=== PATIENT | male | born 1955 ===

== ENCOUNTER 2018-04-23 02:34 | Emergency (ER) | payer SELFPAY ==
--- NOTE | 2018-04-23 02:50 | EDPHY ---
H & P Stated Complaint: Rib pain/SOB Time Seen by Provider: 04/23/18 02:49 HPI/ROS: 63 yo female presents complaining of right sided pleuritic chest pain that began this afternoon. He denies cough, fevers or chills. He denies any prior hospitalizations or surgeries. He states he has a prior hx of chronic norco use, has stopped the norco and uses Kratom for approx 3 months. No leg pain, no leg cramps. Review of systems As per HPI General no fever no chills no weakness HEENT no eye pain no eye discharge. No eye redness, no sore throat Respiratory no cough, positive shortness of breath Cardiac positive chest pain, no peripheral edema GI no abdominal pain, no diarrhea, no constipation, no nausea, no vomiting no flank pain, no hematuria, no dysuria Musculoskeletal no myalgias, no joint pain Heme no easy bruising, no easy bleeding Endo no polyuria, no polydipsia Skin no rashes, no pruritus Neuro no syncope, no dizziness, no headaches Psych is no suicidal ideation, no homicidal ideation Source: Patient Exam Limitations: No limitations - Personal History Current Tetanus/Diphtheria Vaccine: Yes Current Tetanus Diphtheria and Acellular Pertussis (TDAP): Yes - Medical/Surgical History Hx Asthma: No Hx Chronic Respiratory Disease: No Hx Diabetes: No Hx Cardiac Disease: No Hx Renal Disease: No Hx Cirrhosis: No Hx Alcoholism: No Hx HIV/AIDS: No Hx Splenectomy or Spleen Trauma: No Other PMH: Denies - Family History Significant Family History: No pertinent family hx - Social History Smoking Status: Former smoker Alcohol Use: Occasionally Drug Use: Marijuana, Other (kratom) - Physical Exam Exam: 63 yo M in moderate distress secondary to right lower chest wall pain at,nc eomi, anicteric neck supple, no jvd, no meningismus lungs cta bilat, no wheeze chest wall ttp right lower chest wall heart rrr abd non dist nabs soft nt ext no cce skin no rash Constitutional: Initial Vital Signs Temperature (C) 36.6 C 04/23/18 02:38 Heart Rate 95 04/23/18 02:38 Respiratory Rate 18 04/23/18 02:38 Blood Pressure 170/115 H 04/23/18 02:38 O2 Sat (%) 93 04/23/18 02:38 O2 Delivery Mode Room Air Allergies/Adverse Reactions: varenicline [From Chantix] Allergy (Verified 04/23/18 02:41) Home Medications: Medication Instructions Recorded NK [No Known Home Meds] 04/23/18 Medical Decision Making ED Course/Re-evaluation: Patient seen and evaluated for right lower chest pain of approximately 12 hr duration. IV established, labs drawn EKG normal sinus rhythm, rate 97 Chest x-ray poor inspiration , no infiltrate Troponin wnl D-dimer wnl CBC wnl CMP wnl Pt given one liter normal saline, fentanyl 50 mcg and toradol 30 mg with marked relief of his right sided chest wall pain. CT chest to rule out pe done because pt mildly tachycardic and had been on long drive >[address] chest no pe, pos nodules, emphysematous changes Imp right costochondritis Plan rest ibuprofen or acetaminophen advise follow up with pcp Differential Diagnosis: Differential diagnosis considered but not limited to: Myocardial infarction, pneumothorax, pulmonary embolus, pleural effusion, pleurisy, pneumonia, costochondritis, herpes zoster - Data Points Laboratory Results: 04/23/18 04/23/18 03:01 02:58 POC Sodium 141 mEq/L mEq/L (135-145) POC Potassium 4.5 mEq/L mEq/L (3.3-5.0) POC Chloride 100.0 mEq/L mEq/L (97-110) POC Total CO2 27 mEq/L mEq/L (22-31) POC BUN 13 mg/dL mg/dL (7-23) POC Creatinine 1.0 mg/dL mg/dL (0.7-1.3) POC Glucose 105 mg/dL H mg/dL (70-100) POC Calcium 10.3 mg/dL mg/dL (8.5-10.4) POC Total Bilirubin 0.6 mg/dL mg/dL (0.1-1.4) POC AST 32 IU/L IU/L (17-59) POC ALT 41 IU/L IU/L (21-72) POC Alk Phosphatase 81 IU/L IU/L (38-126) POC Troponin I 0.01 ng/mL ng/mL (0.00-0.08) POC Total Protein 8.4 g/dL H g/dL (6.3-8.2) POC Albumin 4.2 g/dL g/dL (3.5-5.0) Medications Given: Discontinued Medications Fentanyl (Sublimaze) 50 mcg IVP EDNOW ONE Stop: 04/23/18 02:56 Last Admin: 04/23/18 02:58 Dose: 50 mcg Sodium Chloride (Ns) 1,000 mls @ 0 mls/hr IV ONCE ONE PRN Reason: Wide Open Stop: 04/23/18 03:02 Last Admin: 04/23/18 03:04 Dose: 1,000 mls Ketorolac Tromethamine (Toradol) 30 mg IVP EDNOW ONE Stop: 04/23/18 03:17 Last Admin: 04/23/18 03:18 Dose: 30 mg Point of Care Test Results: CBC CBC Collection Date 04/23/18 CBC Collection Time 02:45 WBC 11.1 RBC 4.84 HGB 15.3 HCT 46.0 PLT 200 Neut # 7.7 Neut 70.0 LYMPH # 2.1 LYMPH 18.7 Other WBC # 1.3 Other WBC 11.3 MCV 95.0 Chemistry 04/23/18 04/23/18 03:01 02:58 POC Sodium 141 mEq/L mEq/L (135-145) POC Potassium 4.5 mEq/L mEq/L (3.3-5.0) POC Chloride 100.0 mEq/L mEq/L (97-110) POC Total CO2 27 mEq/L mEq/L (22-31) POC BUN 13 mg/dL mg/dL (7-23) POC Creatinine 1.0 mg/dL mg/dL (0.7-1.3) POC Glucose 105 mg/dL H mg/dL (70-100) POC Calcium 10.3 mg/dL mg/dL (8.5-10.4) POC Total Bilirubin 0.6 mg/dL mg/dL (0.1-1.4) POC AST 32 IU/L IU/L (17-59) POC ALT 41 IU/L IU/L (21-72) POC Alk Phosphatase 81 IU/L IU/L (38-126) POC Troponin I 0.01 ng/mL ng/mL (0.00-0.08) POC Total Protein 8.4 g/dL H g/dL (6.3-8.2) POC Albumin 4.2 g/dL g/dL (3.5-5.0) D-Dimer D-Dimer Collection Date 04/23/18 D-Dimer Collection Time 02:45 D-Dimer (ng/ml) <100 Departure - Departure Disposition: Home, Routine, Self-Care Clinical Impression: Pleuritic chest pain, Costochondritis, acute Condition: Good Instructions: Costochondritis (ED) Additional Instructions: Ibuprofen or acetaminophen as needed for pain. Referrals: Patient,NotPresent [Primary Care Provider] - As per Instructions [facility],. [Clinic] - As per Instructions [facility] [Provider Group] - As per Instructions
[2018-04-23] MEDS ORDERED: fentaNYL 100 MCG/2 ML INJ IVP ONE (02:55)
[2018-04-23] MEDS ORDERED: NS 1,000 ML IV ONE (03:01)
[2018-04-23] MEDS ORDERED: KETOROLAC 30 MG/1 ML SDV IVP ONE (03:16)
[2018-04-23] MEDS ORDERED: IOPAMIDOL (ISOVUE 370) 100 ML BTL IV ONE (03:29)
[2018-04-23 04:20] VITALS: BP 125/93
--- NOTE | 2018-04-23 04:31 | CPEKG ---
Test Reason : OPEN Blood Pressure : / mmHG Vent. Rate : 097 BPM Atrial Rate : 097 BPM P-R Int : 146 ms QRS Dur : 082 ms QT Int : 333 ms P-R-T Axes : 059 008 026 degrees QTc Int : 423 ms Sinus tachycardia Atrial premature complex Probable anteroseptal infarct, old Confirmed by iTff Gupta ([id number] on 04/23/2018 4:31:29 AM Referred By: Confirmed By:Tiff Gupta
== END 2018-04-23 04:34 | disposition home or self-care (01) ==
LOC: CED 02:34
DX: R07.89 Other chest pain (principal); M94.0 Chondrocostal junction syndrome [Tietze]; Z87.891 Personal history of nicotine dependence
CPT/HCPCS: 71046-PO; 71275-PO; 80053-PO; 84484-PO; 96374; J1885; J3010; Q9967